=== PATIENT | female | born 1965 | race Caucasian/White ===

== ENCOUNTER → 2016-12-07 | Outpatient (CLI) | payer OTHER ==
[~2016-12-07] MED LIST: ABILIFY MAINTE300 MG IM; ABILIFY15 MG PO; CALCIUM600 MG PO; CLINDAMYCIN HC300 MG PO; DILTIAZEM 24HR180 MG PO; ELIQUIS5 MG PO; FIORICET TAB1 EA PO; IMDUR ER TAB 3030 MG PO; LISINOPRIL30 MG PO; LOPRESSOR 25 MG25 MG PO; LORTAB 5-325 M1 EACH PO; MACROBID 100 M100 M1 PO; METFORMIN HCL500 M1 PO; NEURONTIN 300300 MG PO; PROTONIX40 MG PO; SYNTHROID50 MCG PO; TRAZODONE HCL300 MG PO; VENTOLIN HFA 66.7 GM INH; VITAMIN D2000 UNI1 PO
== END ==
LOC: KOH-I 15:02
DX: J06.9 Acute upper respiratory infection, unspecified (principal)
CPT/HCPCS: 71020

== ENCOUNTER → 2016-12-14 | Outpatient (CLI) | payer OTHER | LOC: US 12:28 | DX: M79.605 Pain in left leg (principal); M79.89 Other specified soft tissue disorders | CPT/HCPCS: 93971 ==

== ENCOUNTER → 2017-01-12 | Outpatient (CLI) | payer OTHER | LOC: KOH-I 09:41 | DX: J44.1 Chronic obstructive pulmonary disease with (acute) exacerbation (principal); R91.8 Other nonspecific abnormal finding of lung field | CPT/HCPCS: 71020 ==

== ENCOUNTER → 2020-09-23 | Outpatient (CLI) | payer OTHER | LOC: KOH-I 16:11 | DX: S79.911A Unspecified injury of right hip, initial encounter (principal) | CPT/HCPCS: 73502 ==

== ENCOUNTER → 2020-11-19 | Outpatient (CLI) | payer OTHER | LOC: KOH-I 09:27 | DX: M25.511 Pain in right shoulder (principal) | CPT/HCPCS: 73030 ==

== ENCOUNTER → 2020-12-20 | Outpatient (CLI) | payer OTHER | LOC: MRI 11-20 13:00 | DX: D18.09 Hemangioma of other sites (principal) | CPT/HCPCS: 36415; 72157; 82565; A9577 ==

== ENCOUNTER → 2021-01-21 | Outpatient (CLI) | payer OTHER ==
[2021-01-21 11:05] LABS: HEMOGLOBIN 12.8 gm/dl (12.3-15.3); RED BLOOD COUNT 4.21 M/UL (4.00-5.10); WHITE BLOOD COUNT 7.7 K/UL (4.5-11.0)
[2021-01-21 11:41] LABS: BUN/CREATININE RATIO 17 (0-10)
[2021-01-22 11:15] LABS: HBSAG CONFIRMATION Negative (.); HBSAG SCREEN Confirm. indicated (Negative); HEP B CORE AB, TOT Negative (Negative)
[2021-01-24 18:13] LABS: HCV AB >11.0 (0.0-0.9); HEPATITIS C QUANTITATION HCV Not Detected IU/mL (.)
[2021-01-24 19:08] LABS: QUANTIFERON MITOGEN VALUE >10.00 IU/mL (.); QUANTIFERON-TB GOLD PLUS Negative (Negative)
== END ==
LOC: LAB 09:31
PROVIDERS: Internal Medicine
DX: R76.8 Other specified abnormal immunological findings in serum (principal); M47.819 Spondylosis without myelopathy or radiculopathy, site unspecified; M25.519 Pain in unspecified shoulder; D89.89 Other specified disorders involving the immune mechanism, not elsewhere classified; Z79.899 Other long term (current) drug therapy
CPT/HCPCS: 36415; 80053; 85025; 85652; 86140; 86704; 86803; 87340